=== PATIENT | female | born 1990 | race Caucasian/White ===

== ENCOUNTER 2017-06-24 06:23 | Inpatient (IN) | payer OTHER, SELFPAY | END 2017-06-26 11:32 | disposition home or self-care (01) | DRG 766 | PROVIDERS: Admitting Provider Family Medicine; Visit Provider Family Medicine | DX: O34.211 Maternal care for low transverse scar from previous cesarean delivery (principal); D25.0 Submucous leiomyoma of uterus; Z3A.39 39 weeks gestation of pregnancy; Z37.0 Single live birth | CPT/HCPCS: 36415; 59050; 85025; 86850; 86900; 86901; 99058; J1200; J1885; J2274; J2405; J2590; J3010; J7121 ==

== ENCOUNTER → 2017-08-28 16:15 | Outpatient (CLI) | payer OTHER, SELFPAY ==
--- NOTE | 2017-08-28 16:18 | DI.RAD.S_ITS ---
PROCEDURE: XR LUMBAR SPINE MIN 4V INDICATIONS: BACK PAIN TECHNIQUE: 5 views of the lumbar spine were acquired. COMPARISON: None. FINDINGS: Bones: 5 nonrib-bearing vertebrae are present. There is mild levoconvex curvature with normal bony alignment. No vertebral body compression fractures. No suspicious bony lesions. Soft tissues: Overlying bowel gas pattern is normal. No suspicious soft tissue calcifications. Oblique images: No pars defects. There appears to be some joint space narrowing and irregularity in the left sacroiliac joint inferiorly. IMPRESSION: 1. Normal lumbar spine. Slight levoconvex curvature. 2. Possible left sacroiliitis for clinical correlation. If indicated, x-rays of the SI joints are recommended. Dictated by: Ander Lorenzo M.D. on 08/28/2017 at 16:39 Approved by: Ander Lorenzo M.D. on 08/28/2017 at 16:42
== END ==
PROVIDERS: Visit Provider Family Medicine
DX: M54.5 Low back pain (principal)
CPT/HCPCS: 72110

== ENCOUNTER → 2017-09-03 17:46 | Outpatient (CLI) | payer OTHER, SELFPAY ==
--- NOTE | 2017-09-03 17:49 | DI.RAD.S_ITS ---
PROCEDURE: XR PELVIS 1-2V INDICATIONS: INFLAMMATION OF SACROILITIS, HIP AND BACK PAIN TECHNIQUE: Single view(s) of the pelvis acquired. COMPARISON: None. FINDINGS: Bones: No fractures or dislocations. No suspicious bony lesions. Shallow right acetabulum with lateral uncovering of the femoral head. There is borderline decreased right lateral center edge angle measuring 25?. Hip joint spaces are grossly preserved. Asymmetric left-sided sacroiliac sclerosis and erosive appearance. Soft tissues: Visualized bowel gas pattern is normal. No suspicious soft tissue calcifications. IMPRESSION: Asymmetric (left greater than right) sacroiliitis. Findings raise the possibility of right hip dysplasia. Dictated by: Moo Ley M.D. on 09/03/2017 at 20:04 Approved by: Moo Ley M.D. on 09/03/2017 at 20:10
[2017-09-03 18:12] LABS: Hematocrit 38.3 % (36-46); Hemoglobin 13.2 g/dL (12.0-16.0); Mean Corpuscular HGB Conc 34.5 % (30-36); Mean Corpuscular Hemoglobin 30.9 PG (26-34); Mean Corpuscular Volume 89.6 fL (80-100); Platelet Count 233 X10^3/uL (150-400); Red Blood Cell Count 4.27 X10^6/uL (4.0-5.2); Red Cell Distribution Width 13.3 % (11.6-14.8); White Blood Cell Count 5.8 X10^3/uL (4.5-11.0)
[2017-09-03 18:28] LABS: Erythrocyte Sedimentation Rate 4 MM/HR (0-20)
[2017-09-03 18:31] LABS: Alanine Aminotransferase 29 IU/L (9-52); Albumin 4.5 g/dL (3.5-5.0); Albumin Globulin Ratio 1.7 (1.0-2.8); Alkaline Phosphatase 61 U/L (38-126); Aspartate Aminotransferase 20 IU/L (14-36); BUN Creatinine Ratio 41.3 (6-22); Bilirubin Total 0.4 mg/dL (0.2-1.3); Blood Urea Nitrogen 33 mg/dL (7-17); C-Reactive Protein Quant 0.5 mg/dL (<1.0); Calcium 9.6 mg/dL (8.4-10.2); Carbon Dioxide 24 mmol/L (22-32); Chloride 102 mmol/L (98-107); Estimated Glomerular Filt Rate > 60.0 mL/min (>60); Globulin 2.6 g/dL (1.7-4.1); Glucose 87 mg/dL (70-100); HEMOLYSIS < 15 (0-50); Potassium 4.2 mmol/L (3.4-5.1); Sodium 138 mmol/L (137-145); Total Protein 7.1 g/dL (6.3-8.2)
[2017-09-06 15:27] LABS: HLA B27 NEGATIVE (Negative)
== END ==
PROVIDERS: Visit Provider Family Medicine
DX: M46.1 Sacroiliitis, not elsewhere classified (principal)
CPT/HCPCS: 36415; 72170; 80053; 85027; 85651; 86140; 86812

== ENCOUNTER → 2018-04-07 17:09 | Outpatient (CLI) | payer OTHER, SELFPAY ==
--- NOTE | 2018-04-07 17:10 | DI.MRI.S_ITS ---
PROCEDURE: MR LUMBAR SPINE WO CON INDICATIONS: Lumbar spine pain with radiculopathy TECHNIQUE: Noncontrast sagittal T1 spin echo and T2 fast echo, sagittal STIR, axial T1 and T2 fast spin echo through the lumbar spine. In cases with scoliosis, additional coronal T2 fast spin echo may be performed. COMPARISON: [facility], CR, XR LUMBAR SPINE MIN 4V, 08/28/2017, 16:00. FINDINGS: Image quality: Excellent. Alignment and Curvature: There is normal bony alignment. Bone Marrow: Marrow is of normal overall signal. No acute vertebral body compression fractures. Spinal Cord: Conus medullaris terminates at the L1 level. Visualized cord demonstrates normal signal and size. Paraspinous Soft Tissues: No paravertebral masses. T12-L1: Normal appearance. L1-L2: Normal appearance. L2-L3: Normal appearance. L3-L4: The disc height is well-preserved. Loss of disc signal is seen at this level. An annular fissure can be seen posteriorly, as on series 4 image 7. Mild disc bulge is seen. No significant neural foraminal narrowing is seen. Mild central canal narrowing is seen. L4-L5: Mild to moderate loss of disc height and disc signal are seen. Moderate disc bulge is seen. There is a central disc extrusion seen, with superior migration of the disc material. There is associated severe central canal narrowing. There is mild right-sided and moderate left-sided neural foraminal narrowing seen at L5-S1: No significant abnormality is seen. IMPRESSION: There is a prominent central disc extrusion at L4-L5, with associated severe central canal narrowing. Dictated by: John Tejada M.D. on 04/07/2018 at 17:44 Approved by: John Tejada M.D. on 04/07/2018 at 17:48
== END ==
PROVIDERS: PCP Family Medicine; Visit Provider Family Medicine
DX: M51.16 Intervertebral disc disorders with radiculopathy, lumbar region (principal); M48.061 Spinal stenosis, lumbar region without neurogenic claudication
CPT/HCPCS: 72148

== ENCOUNTER → 2019-05-14 16:19 | Outpatient (CLI) | payer OTHER, SELFPAY ==
[2019-05-14 17:31] LABS: Add Manual Diff / Slide Review NO; Basophils Absolute Auto 0 /uL (0-100); Basophils Percent Auto 0.5 % (0-2); Eosinophils Absolute Auto 200 /uL (0-450); Eosinophils Percent Auto 3.3 % (2-4); Hematocrit 36.6 % (36-46); Hemoglobin 12.7 g/dL (12.0-16.0); Lymphocytes Absolute Auto 2000 /uL (1100-4500); Lymphocytes Percent Auto 34.8 % (25-40); Mean Corpuscular HGB Conc 34.6 % (30-36); Mean Corpuscular Hemoglobin 30.4 PG (26-34); Mean Corpuscular Volume 87.8 fL (80-100); Monocytes Absolute Auto 500 /uL (0-900); Monocytes Percent Auto 8.3 % (3-14); Neutrophils Absolute Auto 3100 /uL (1500-7000); Neutrophils Percent Auto 53.1 % (50-75); Platelet Count 236 X10^3/uL (150-400); Red Blood Cell Count 4.17 X10^6/uL (4.0-5.2); Red Cell Distribution Width 12.5 % (11.6-14.8); White Blood Cell Count 5.8 X10^3/uL (4.5-11.0)
[2019-05-14 19:02] LABS: Hepatitis B Surface Antigen NEGATIVE s/c (NEGATIVE)
[2019-05-14 19:18] LABS: Hep C Virus Ab w/Reflex Quant NEGATIVE s/c (NEGATIVE)
[2019-05-14 21:07] LABS: HIV 1 & 2 Ab/Ag 4th Gen Combo NEGATIVE (NEGATIVE)
[2019-05-14 21:11] LABS: Urine N gonorrhoeae NOT DETECTED
[2019-05-14 21:33] LABS: Urine Chlamydia NOT DETECTED
[2019-05-14 23:57] LABS: Rubella Antibody IgG 44.1 IU/mL (>15)
[2019-05-15 10:09] LABS: RPR Screen Non Reactive (Non Reactive); Varicella IgG Antibody 734 index (Immune >165)
== END ==
PROVIDERS: PCP Family Medicine; Referring Provider Family Medicine; Visit Provider Family Medicine
DX: Z11.3 Encounter for screening for infections with a predominantly sexual mode of transmission (principal); Z11.8 Encounter for screening for other infectious and parasitic diseases; Z34.81 Encounter for supervision of other normal pregnancy, first trimester; Z3A.08 8 weeks gestation of pregnancy
CPT/HCPCS: 36415; 80055; 86787; 86803; 86850; 86900; 86901; 87086; 87389; 87491; 87591

== ENCOUNTER → 2019-08-05 13:49 | Outpatient (CLI) | payer OTHER, SELFPAY ==
--- NOTE | 2019-08-05 13:51 | DI.US.S_ITS ---
PROCEDURE: US OB >= 14 WEEKS FETUS INDICATIONS: ANATOMIC SURVEY OUTSIDE/PRIOR DATING DATA: Last menstrual period (LMP): 03/13/19. LMP-based estimated date of delivery (LISA): 12/18/19. First dating scan (date and location): 08/05/19. Estimated date of delivery (LISA) from first dating scan: 12/16/19. TECHNIQUE: Real-time scanning was performed of the fetus, with image documentation and biometric measurements. Endovaginal scanning: No COMPARISON: None. FINDINGS: General: A single living intrauterine gestation is present. Presentation: Vertex Placenta: Placental position is posterior, without previa. Amniotic fluid index: 16.0 cm, normal range is 5-24 cm. heart rate: 147 beats per minute. Maternal cervical canal: 3.2 cm long. Normal lower limit is 2.5 cm. biometrics: Biparietal diameter: 20 weeks 5 days Head circumference: 20 weeks 3 days Abdominal circumference: 20 weeks 4 days Femur length: 22 weeks 1 day Estimated gestational age from initial scan: not applicable. Composite gestational age from present scan: 21 weeks Estimated weight and percentile: 405 g; 71st percentile Measurement variability for biometric dating: +/- 7 days from 14 weeks to 15 weeks 6 days gestation, +/- 10 days from 16 weeks to 21 weeks 6 days gestation, +/- 2 weeks from 22 weeks to 27 weeks 6 days gestation, +/- 3 weeks for 28 weeks gestation or later. weight reference: 4500 g or EFW >90/95% is considered macrosomia or large for gestational age. EFW <10% is small for gestational age. EFW 5% or less is considered intra-uterine growth restriction. Anatomic survey: Neuro: Ventricles are non-dilated at less than 10 mm. Cisterna magna is normal at 3-11 mm. Cerebellum is normal in size and morphology. Nuchal skin fold: Normal at less than 6 mm between 14-21 weeks gestational age. Face: Nose and lips normal. Facial profile not well-seen. Spine: No evidence for spina bifida. Heart: 4-chambered heart is present, with normal ventricular outflow tracts. Diaphragm: Diaphragm is intact. Stomach: Left-sided stomach is present. Kidneys: No hydronephrosis. Normal is less than 5 mm in 2nd trimester, less than 7 mm in 3rd trimester. Cord: 3-vessel cord has orthotopic insertion. Bladder: Normal in size. Extremities: All 4 extremities identified. IMPRESSION: 1. Single living IUP with composite age of 21 weeks 0 days corresponding to ultrasound LISA of 12/16/19. 2. Facial profile not well visualized; otherwise normal anatomic survey. Dictated by: Lazaro Melendez [facility] Interpreted: Venu Thomas MD on 08/05/2019 at 15:22 Approved by: Venu Thomas M.D. on 08/05/2019 at 16:21
== END ==
PROVIDERS: PCP Family Medicine; Referring Provider Family Medicine; Visit Provider Family Medicine
DX: Z34.82 Encounter for supervision of other normal pregnancy, second trimester (principal); Z3A.21 21 weeks gestation of pregnancy
CPT/HCPCS: 76811

== ENCOUNTER → 2019-09-26 10:35 | Outpatient (CLI) | payer OTHER, SELFPAY ==
[2019-09-26 12:20] LABS: Hematocrit 34.2 % (36-46); Hemoglobin 11.8 g/dL (12.0-16.0)
[2019-09-26 12:52] LABS: GTT (PREG) 1 Hour PP 50gm Dose 96 mg/dL (76-139)
== END ==
PROVIDERS: PCP Family Medicine; Referring Provider Family Medicine; Visit Provider Family Medicine
DX: Z34.82 Encounter for supervision of other normal pregnancy, second trimester (principal); Z3A.24 24 weeks gestation of pregnancy
CPT/HCPCS: 36415; 82950; 85014; 85018

== ENCOUNTER → 2019-11-25 14:58 | Outpatient (CLI) | payer OTHER, SELFPAY ==
[2019-11-26 14:44] LABS: Strep Grp B PCR NEG for Grp B Strep
== END ==
PROVIDERS: PCP Family Medicine; Visit Provider Family Medicine
DX: Z34.83 Encounter for supervision of other normal pregnancy, third trimester (principal); Z3A.36 36 weeks gestation of pregnancy
CPT/HCPCS: 87653

== ENCOUNTER → 2019-12-05 14:44 | Outpatient (CLI) | payer OTHER, SELFPAY ==
[2019-12-07 08:11] LABS: COVID19 Sendout Positive (Not Detect)
== END ==
PROVIDERS: PCP Family Medicine; Visit Provider Physician Assistant
DX: U07.1 COVID-19 (principal)
CPT/HCPCS: 87635

== ENCOUNTER → 2019-12-15 14:34 | Outpatient (CLI) | payer OTHER, SELFPAY ==
[2019-12-15 16:30] LABS: COVID19 -Nasal RAPID POSITIVE (Negative)
== END ==
PROVIDERS: PCP Family Medicine; Visit Provider Physician Assistant
DX: U07.1 COVID-19 (principal)
CPT/HCPCS: 87635

== ENCOUNTER 2019-12-16 15:45 | Inpatient (IN) | payer OTHER, SELFPAY ==
--- NOTE | 2019-12-16 | PATH_ITS ---
[facility] Accession Number: [id number] . 01 Material submitted: . fallopian tube - BILATERAL FALLOPIAN TUBES . 01 Clinical history: . REPEAT W/BTL . 02 Diagnosis: Bilateral Fallopian Tubes, Bilateral Tubal Ligation: Segments of bilateral fallopian tubes. No evidence of neoplasm. MRV 12/18/2019 1010 Local . 02 Electronically signed: . Chivo Magaña MD, PhD, Pathologist NPI- [id number] . 01 Gross description: . Received in formalin, labeled bilateral fallopian tubes, and consists of two segments of fallopian tube measuring 1.5 cm in length x 0.6 cm in diameter and 2.5 cm in length x 0.6 cm in diameter. The serosa is hillman-pink and smooth. Sectioning reveals a stellate lumen and a hillman mucosa. The lumen measures 0.2 cm in diameter. The specimen is entirely submitted. . A1: smaller fallopian tube, serially sectioned. A2: larger fallopian tube. (EA:[id number]) /MRV 12/17/2019 1000 Local . 02 Microscopic: . A complete cross-section of fallopian tube is seen from each tubular structure submitted. . 02 Pathologist provided ICD-10: Z30.2 . 02 CPT . 902564 Performed at: 01 [facility] [address] [facility], [place], [place] [id number] MD Eugene Goldsmith MD Phone: [phone] Performed at: 02 [facility] [address] [place], [place] [id number] MD Tracie Kwon MD Phone: [phone]
--- NOTE | 2019-12-16 16:02 | P.HP_ITS ---
History of Present Illness History of Present Illness Date Patient Seen: 12/16/19 Time Patient Seen: 16:35 Chief complaint: REPEAT W/BTL Narrative: 29-year-old female G5 para 2 estimated gestational age 39 weeks and 5 7 days consistent with LMP and early ultrasound comes in today for repeat section. care complicated by recent covert of iris positive with mild symptoms for symptoms started approximately 2 weeks ago with test positive last Saturday. Patient's other care this is a repeat C- section with prior 2 previous C-sections had a history of preeclampsia with 1st delivery. Patient established care at approximately 8 weeks gestational age she had routine follow-up throughout the . Of approximately 40 lb during . She had normal blood pressure throughout. Patient's labs are as followed. White blood cell count 5.8 hemoglobin hematocrit 11.8 and 34.2 platelet count 236 1 hour glucose 96 serum VDRL nonreactive urine chlamydia not detected urine GC not detected COVID-19 positive hepatitis-B surface antigen negative hepatitis C negative HIV negative rubella immune GBS negative varicella immune. Blood type A-positive antibody screen negative. Normal 20 week ultrasound anatomic La although face not well seen. Patient states she is feeling fine today. No symptoms of fever cough chills nasal discharge. She says she has felt fine for the last 3 days. Before that had a little bit of headache stomach ache and nausea. Patient has had no roula and good movement. Patient has some mild lower extremity edema. Other than feeling a little bit nervous she says she feels fine. Patient History Surgical History delivery delivered (Resolved) delivery delivered (Resolved) History of removal of skin mole (Acute) [place] teeth extracted (Acute) Family & Social History Family History (Updated 05/07/19 @ 13:05 by Aundrea Yepez RN) Grandfather Diabetes mellitus Myocardial infarct Hypertension Family/Other Pancreatic cancer Grandmother Breast cancer Bone cancer Family/Other Gastric cancer Father Hypertension Mother No problems noted. Grandmother Myocardial infarct Grandfather Heart failure Tobacco & Substance use: Smoking Status Never smoker alcohol intake never Meds Home Medications and Allergies Home Medications Medication Instructions Recorded Confirmed Type vit-iron fum-folic ac 1 cap PO QDAY #30 cap 06/26/17 12/02/19 Rx [Mynatal] calcium carbonate 200 mg calcium 200 mg PO BID 05/07/19 12/02/19 History (500 mg) chewable tablet cholecalciferol (vitamin D3) 100 4,000 unit PO DAILY 05/07/19 12/02/19 History mcg (4,000 unit) capsule Allergies Allergy/AdvReac Type Severity Reaction Status Date / Time No Known Drug Allergies Allergy Verified 12/02/19 15:05 Exam Vital Signs (past 8 hours): . General: Alert no apparent distress. Affect is appropriate. Roula it is uncomfortable. HEENT: Neck is supple without lymphadenopathy pupils equal round and reactive. Cardio: S1-S2 regular rate and rhythm. Respiratory: Lungs clear to auscultation. Abdomen: Gravid. Extremities: Normal deep tendon reflexes trace edema. [place]: No contractions heart tones: Category 1 tracing Assessment & Plan Assessment & Plan narrative: 29-year-old G5 para 2 39 weeks and 5 7 days gestational age in today for term repeat section patient covert positive. Last symptoms 3 days ago mild symptoms from covert illness. CBC drawn IV fluids started blood pressure stable. Category 1 heart tracing. Discussion of with patient and partner. Risks benefits and common complication were reviewed for the as well as bilateral tubal ligation. Preoperative operative and postoperative care were also discussed. Patient would like a bilateral tubal ligation. This has been discussed previously at numerous visits and confirmed today. Informed consent was obtained and placed in the chart. Preoperative care orders were written and reviewed.
[2019-12-16 16:36] VITALS: BP 152/94
[2019-12-16] MEDS: LACTATED RINGERS 1,000 ML 100 ML IV ×3 (17:06→21:24)
--- NOTE | 2019-12-16 17:21 | SUR.OPER ---
Supine on Padded OR bed, head on pillow, safety belt at thigh, arms secured on padded arm boards at <90 degrees abduction. Bump under right buttock. Legs uncrossed with pillow under knees, gel pad to heels, tape over blanket to lower legs.
[2019-12-16] MEDS: CEFAZOLIN 2 GM/100 ML FROZ.PIGGY IV (17:37)
[2019-12-16 17:39] LABS: Add Manual Diff / Slide Review NO; Basophils Absolute Auto 0 /uL (0-100); Basophils Percent Auto 0.3 % (0-2); Eosinophils Absolute Auto 0 /uL (0-450); Eosinophils Percent Auto 0.5 % (2-4); Hematocrit 35.4 % (36-46); Hemoglobin 12.2 g/dL (12.0-16.0); Lymphocytes Absolute Auto 1500 /uL (1100-4500); Lymphocytes Percent Auto 17.9 % (25-40); Mean Corpuscular HGB Conc 34.4 % (30-36); Mean Corpuscular Hemoglobin 30.3 PG (26-34); Mean Corpuscular Volume 88.1 fL (80-100); Monocytes Absolute Auto 600 /uL (0-900); Monocytes Percent Auto 7.4 % (3-14); Neutrophils Absolute Auto 6100 /uL (1500-7000); Neutrophils Percent Auto 73.9 % (50-75); Platelet Count 180 X10^3/uL (150-400); Red Blood Cell Count 4.02 X10^6/uL (4.0-5.2); Red Cell Distribution Width 13.2 % (11.6-14.8); White Blood Cell Count 8.3 X10^3/uL (4.5-11.0)
--- NOTE | 2019-12-16 18:08 | SUR.OPER ---
VIABLE FEMALE INFANT DELIVERED AT 1807. CORD BLOOD AND PLACENTA TO OB WITH RN.
--- NOTE | 2019-12-16 18:22 | SUR.OPER ---
PATIENT RECOVERED IN OR 4 BY ANESTHESIA AND OB RN THEN TRANSPORTED TO PATIENTS ROOM.
--- NOTE | 2019-12-16 18:51 | P.PCN_ITS ---
Procedures Date/Time Date of procedure: 12/16/19 Time of procedure: 18:51 General Procedure description: Procedure: Lower segment transverse section Consent: Verbal and written informed consent were obtained from the patient placed on the chart. Indications: 29-year-old G5 para 2 term with repeat section and bilateral tubal ligation Findings: Normal uterus normal ovaries Female infant Apgars 9 and 9 Anesthesia: Spinal Surgeon: Dr. Diaz Brewster [employer] P[employer] Mixer Operator: Dr. zeny Mar Estimated blood loss: 500 mL Drains: Monet to gravity. Specimens: Left and right tube IV fluids: 1800 cc LR Description of procedure: The patient was brought to the operating room after her spinal epidural, preparation, and Monet had been performed. The abdomen was prepped and draped in tested for for analgesia. When it was found to be adequate, a lower abdominal Pfannenstiel incision was made with first with a knife and cared down to the fascia with a second knife. The fascia was incised in the midline and extended laterally with a knife. Bleeding points were clamped with hemostats and Bovie coagulated. The rectus muscles were by blunt dissection. The rectus muscles were divided in the midline and the peritoneum was grasped with hemostats and carefully entered with Rick scissors. The incision was extended bilaterally. The bladder blade was then placed. The vesicoperitoneum was grasped with smooth pickups, entered with Metzenbaum scissors, and extended laterally. The bladder flap was created by gently blunt dissection and placed behind the bladder blade. The lower uterine segment was noted to be thin was carefully incised with the scalpel and extended laterally with the fingers. A live was found to be in the vertex position. The head was then easily elevated with the hand. Head was delivered with the use of a vacuum. The baby was then suctioned and cried immediately, and was handed to the waiting attendant. The placenta was delivered manually. The uterus was explored with a wet lap sponge and found to be clear membranes. The first layer of the uterine closure was with running locking #1 chromic catgut suture. The second layer with an imbricating #1 chromic catgut suture. Hemostasis was carefully checked and found to be satisfactory. The fallopian tubes and ovaries were inspected and to be found normal bilaterally. The left tube was then grabbed with a Marcelina. The tube was then sutured and transected and cauterized in the modified Claudia fashion. This was then repeated with a right tube. After sponge and needle counts were found to be correct the peritoneum was closed with 2-0 chromic catgut suture. Rectus muscles were approximated in the lower midline. The fascia was closed with a 2 running 0 Vicryl from lateral to midline. The subcutaneous tissue was approximated with interrupted 2.0 plain gut. Bleeding points were Bovie and coagulated. The subcutaneous tissue was approximated with 2.0 plain gut suture. The skin was closed with 1-0 running subcuticular stitch. Urinary output was adequate and normal patient left to the recovery room in good condition.
[2019-12-17] MEDS: KETOROLAC 30 MG/ML VIAL IV ×3 (00:42→13:04)
[2019-12-17] MEDS: OXYCODONE/ACETAMINOPHEN 5/325 TABLET 1 TAB PO (04:35)
[2019-12-17 06:21] LABS: Add Manual Diff / Slide Review NO; Basophils Absolute Auto 0 /uL (0-100); Basophils Percent Auto 0.5 % (0-2); Eosinophils Absolute Auto 100 /uL (0-450); Eosinophils Percent Auto 0.6 % (2-4); Hematocrit 31.8 % (36-46); Hemoglobin 10.9 g/dL (12.0-16.0); Lymphocytes Absolute Auto 1300 /uL (1100-4500); Lymphocytes Percent Auto 14.5 % (25-40); Mean Corpuscular HGB Conc 34.2 % (30-36); Mean Corpuscular Hemoglobin 30.2 PG (26-34); Mean Corpuscular Volume 88.3 fL (80-100); Monocytes Absolute Auto 600 /uL (0-900); Monocytes Percent Auto 6.7 % (3-14); Neutrophils Absolute Auto 6900 /uL (1500-7000); Neutrophils Percent Auto 77.7 % (50-75); Platelet Count 160 X10^3/uL (150-400); Red Cell Distribution Width 13.3 % (11.6-14.8); White Blood Cell Count 8.9 X10^3/uL (4.5-11.0)
--- NOTE | 2019-12-17 08:35 | PM.PN.1 ---
Subjective Subjective Date Patient Seen: 12/17/19 Time Patient Seen: 08:00 Interval history: Patient did well overnight. Some mild incisional pain and discomfort. Using Toradol and Percocet for pain. Had a little bit of clear liquids. Was able to get up a little bit and sit on the side of the bed. She says baby's doing well no problems with breast-feeding vital signs have been stable. Vaginal bleeding is anticipated. No significant incisional bleeding. Nursing staff has no concerns. Exam Vital Signs (past 8 hours): General: Alert no apparent distress. Affect is appropriate. Francesca it is uncomfortable. HEENT: Neck is supple without lymphadenopathy pupils equal round and reactive. Cardio: S1-S2 regular rate and rhythm. Respiratory: Lungs clear to auscultation. Abdomen: Uterus firm. Incision clean dry and intact. Extremities: Normal deep tendon reflexes trace edema. Objective Labs Result Diagrams: 12/17/19 06:10 Labs: Laboratory Results - last 24 hr 12/16/19 12/16/19 12/17/19 17:15 17:15 06:10 WBC 8.3 8.9 RBC 4.02 3.60 L Hgb 12.2 10.9 L Hct 35.4 L 31.8 L MCV 88.1 88.3 MCH 30.3 30.2 MCHC 34.4 34.2 RDW 13.2 13.3 Plt Count 180 160 Neut % (Auto) 73.9 77.7 H Lymph % (Auto) 17.9 L 14.5 L [place] % (Auto) 7.4 6.7 Eos % (Auto) 0.5 L 0.6 L Baso % (Auto) 0.3 0.5 Neut # (Auto) 6100 6900 Lymph # (Auto) 1500 1300 [place] # (Auto) 600 600 Eos # (Auto) 0 100 Baso # (Auto) 0 0 Blood Type A Positive Antibody Screen Negative Assessment & Plan Assessment & Plan narrative: day 1. Status post repeat with bilateral tubal ligation COVID positive with no current active symptoms Patient did well overnight. Some mild incisional pain. Taking Percocet and Toradol. SCDs are on and they will be removed later this morning as she starts to ambulate. Monet catheter will also be removed. She is tolerating oral diet. Transition out of bed to chair. Breast-feeding is going well mom's using contact precautions while breast-feeding and handwashing before. Hemoglobin hematocrit stable. Vaginal bleeding as anticipated. Continue with droplet precautions per Infectious Disease protocol.
[2019-12-17] MEDS: OXYCODONE/ACETAMINOPHEN 5/325 TABLET 2 TAB PO ×3 (09:11→18:06)
[2019-12-17 16:21] VITALS: BP 123/67; PULSE 80; RESP 18; TEMP 36.4
--- NOTE | 2019-12-17 16:58 | PM.OBDS.1 ---
Discharge Providers Provider Date of admission: 12/16/19 15:45 Discharge Date: 12/17/19 Primary care physician: Diaz Brewster MD Consults: 12/16/19 20:04 Consult to Medical Administrator Routine Comment: Discharge provider: Diaz Brewster MD Summary Hospital Course Date Patient Seen: 12/17/19 Time Patient Seen: 16:58 Peripartum Data Infant Delivery Method: Section Laceration Description: None complications: none Status at Discharge Cognitive/behavioral status at discharge: oriented Functional status at discharge: independent ambulation Overall status at discharge: patient is not back to baseline Time Spent with Patient Time attestation: Total time spent providing and/or coordinating discharge services: Time spent: Less than 30 minutes Specific discharge activities: Patient will be discharged home. Continue with isolation contact precautions as per teaching in the hospital. Watch for signs of increased bleeding signs and symptoms of infection such as fevers chills cough respiratory distress increasing vaginal discharge. Discharge from incision. Or respiratory distress. Patient will have follow-up appointment in office with baby on Saturday. And incision check on . Objective Labs Result Diagrams: 12/17/19 06:10 Labs: Laboratory Results - last 24 hr 12/16/19 12/16/19 12/17/19 17:15 17:15 06:10 WBC 8.3 8.9 RBC 4.02 3.60 L Hgb 12.2 10.9 L Hct 35.4 L 31.8 L MCV 88.1 88.3 MCH 30.3 30.2 MCHC 34.4 34.2 RDW 13.2 13.3 Plt Count 180 160 Neut % (Auto) 73.9 77.7 H Lymph % (Auto) 17.9 L 14.5 L [place] % (Auto) 7.4 6.7 Eos % (Auto) 0.5 L 0.6 L Baso % (Auto) 0.3 0.5 Neut # (Auto) 6100 6900 Lymph # (Auto) 1500 1300 [place] # (Auto) 600 600 Eos # (Auto) 0 100 Baso # (Auto) 0 0 Blood Type A Positive Antibody Screen Negative Exam Vital Signs (past 8 hours): - 12/17/19 16:21 Temperature 97.5 F L Pulse Rate 80 Respiratory Rate 18 Blood Pressure 123/67 Discharge Plan Discharge orders & Medications Discharge Orders: Discharge (Order); Ordered 12/17/19 Ordered By: Diaz Brewster Prescriptions: New oxycodone-acetaminophen 5-325 mg Tablet 1 tab PO Q4HR PRN (Reason: Pain, Severe (7-10)) Qty: 20 RF: 0 ibuprofen 600 mg Tablet 600 mg PO Q6HR PRN (Reason: Fever/Mild Pain (1-3)) Qty: 30 RF: 0 docusate sodium [Colace] 100 mg capsule 100 mg PO BID Qty: 20 RF: 0 Continued Mynatal 1 EACH capsule 1 cap PO QDAY Qty: 30 RF: 12 calcium carbonate [Antacid (calcium carbonate)] 200 mg calcium (500 mg) tablet,chewable 200 mg PO BID RF: 0 Vitamin D3 4,000 unit capsule 4,000 unit PO DAILY RF: 0 Follow up/Referrals: Diaz Brewster MD [Primary Care Provider] - 12/24/19 12:00 pm (Check in 15 minutes prior to appointment. Call [phone] from the car to check in ) Visit Report/Discharge Packet Stand Alone Forms: Discharge: Care Discharge Data Primary Care Provider: Diaz Brewster
[2019-12-17] MEDS: IBUPROFEN 600 MG TABLET PO (18:06)
== END 2019-12-17 18:24 | disposition home or self-care (01) | DRG 783 ==
LOC: SSU 15:49 → LABOR 12-17 08:12 → SSU 12-17 08:13
PROVIDERS: Admitting Provider Family Medicine; PCP Family Medicine; Referring Provider Family Medicine; Visit Provider Family Medicine
PROC: 10D00Z1 Extraction of Products of Conception, Low, Open Approach (ICD-10-PCS; CPT 59514; principal; 2019-12-16 17:15)
DX: O98.52 Other viral diseases complicating childbirth (principal); U07.1 COVID-19; O34.219 Maternal care for unspecified type scar from previous cesarean delivery; Z3A.39 39 weeks gestation of pregnancy; Z37.0 Single live birth; Z30.2 Encounter for sterilization
CPT/HCPCS: 36415; 59050; 59510; 59514; 85025; 86850; 86900; 86901; 87635; 90715; J0690; J1100; J1885; J2274; J2405; J2590